=== PATIENT | male | born 1945 | race Caucasian/White ===

== ENCOUNTER → 2020-11-06 | Day surgery (SDC) | payer MEDICARE, OTHER ==
[2020-11-03 08:21] LABS: BASOPHILS % 0.2 % (0.0-1.0); EOSINOPHILS # (AUTO) 0.2 (0.0-0.4); EOSINOPHILS % 3.6 % (0.0-6.0); HEMATOCRIT 44.5 % (38.2-49.6); LYMPHOCYTES # (AUTO) 1.1 (1.0-3.2); LYMPHOCYTES % 22.9 % (18.0-39.1); MEAN CORPUSCULAR HGB CONC 31.5 g/dL (31-35); MEAN CORPUSCULAR VOLUME 92.1 fL (81-99); MONOCYTES # (AUTO) 0.5 (0.2-0.8); MONOCYTES % 10.1 % (4.4-11.3); NEUTROPHILS # (AUTO) 3.1 (2.1-6.9); NEUTROPHILS % 62.8 % (38.7-80.0); PLATELET COUNT 164 x10e3/uL (140-360); RED BLOOD COUNT 4.83 x10e6/uL (4.3-5.7); RED CELL DISTRIBUTION WIDTH 14.2 % (11.7-14.4)
[~2020-11-06] MED LIST: ACETAMINOPHN-T1 EACH PO; ASPIRIN LOW DOS81 MG PO; ASPIRIN81 MG PO; CLARITIN-D 241 EACH PO; ENABLEX7.5 MG PO; FLOMAX0.4 MG PO; FLUNISOLIDE; KEFLEX500 MG PO; LEVOTHYROXINE50 MCG PO; LIPITOR10 MG PO; METFORMIN HCL500 MG PO; MULTIVITAMINE; MYRBETRIQ25 MG PO; PANTOPRAZOLE SO40 MG PO; TEMAZEPAM15 MG PO; TROSPIUM CHLORI20 MG PO; Z.0.DICYCLOMINE HCL2 PO; Z.0.LEVOTHYROXINE25 PO; Z.0.SIMVASTATIN40 MG PO; Z.0.TOVIAZ8 MG PO; Z.2.DOXAZOSIN MESYLA PO; Z.2.METFORMIN HCL500 PO; [UNRECOGNIZED DRUG - OTHER]; [UNRECOGNIZED DRUG - OTHER] PO
[2020-11-06 12:05] VITALS: BP 109/69
== END | disposition home or self-care (01) ==
LOC: OR 08:03
PROVIDERS: ATTEND Internal Medicine Gastroenterology
DX: K44.9 Diaphragmatic hernia without obstruction or gangrene (principal); D12.2 Benign neoplasm of ascending colon; D12.5 Benign neoplasm of sigmoid colon; K29.70 Gastritis, unspecified, without bleeding; K31.7 Polyp of stomach and duodenum; K57.30 Diverticulosis of large intestine without perforation or abscess without bleeding; K64.8 Other hemorrhoids; K63.89 Other specified diseases of intestine; K21.9 Gastro-esophageal reflux disease without esophagitis; Z98.0 Intestinal bypass and anastomosis status; Z98.890 Other specified postprocedural states; K59.00 Constipation, unspecified; R03.0 Elevated blood-pressure reading, without diagnosis of hypertension; E78.00 Pure hypercholesterolemia, unspecified; E11.9 Type 2 diabetes mellitus without complications; E03.9 Hypothyroidism, unspecified; Z88.5 Allergy status to narcotic agent; Z85.46 Personal history of malignant neoplasm of prostate; Z86.010 Personal history of colon polyps; Z01.810 Encounter for preprocedural cardiovascular examination; Z01.812 Encounter for preprocedural laboratory examination; Z20.822 Contact with and (suspected) exposure to COVID-19; Z79.82 Long term (current) use of aspirin; Z79.84 Long term (current) use of oral hypoglycemic drugs
CPT/HCPCS: 36415 ×2; 43239; 45384; 45385; 82948; 85025; 88305; 88312; 93005; U0002

== ENCOUNTER → 2024-07-27 | Day surgery (SDC) | payer MEDICARE, OTHER ==
[2024-07-20 15:55] LABS: BASOPHILS % 0.2 % (0.0-1.0); EOSINOPHILS # (AUTO) 0.1 (0.0-0.4); EOSINOPHILS % 1.3 % (0.0-6.0); HEMATOCRIT 42.4 % (38.2-49.6); HEMOGLOBIN 13.6 g/dL (14.0-18.0); LYMPHOCYTES # (AUTO) 1.4 (1.0-3.2); LYMPHOCYTES % 23.2 % (18.0-39.1); MEAN CORPUSCULAR HEMOGLOBIN 28.8 pg (28-32); MEAN CORPUSCULAR HGB CONC 32.1 g/dL (31-35); MEAN CORPUSCULAR VOLUME 89.8 fL (81-99); MONOCYTES # (AUTO) 0.7 (0.2-0.8); MONOCYTES % 12.4 % (4.4-11.3); NEUTROPHILS # (AUTO) 3.7 (2.1-6.9); NEUTROPHILS % 62.7 % (38.7-80.0); PLATELET COUNT 184 x10e3/uL (140-360); RED BLOOD COUNT 4.72 x10e6/uL (4.3-5.7); RED CELL DISTRIBUTION WIDTH 15.2 % (11.7-14.4); WHITE BLOOD COUNT 5.96 x10e3/uL (4.8-10.8)
[2024-07-20 16:24] LABS: ANION GAP 14.2 mmol/L (8-16); CALCIUM 8.4 mg/dL (8.4-10.2); CREATININE, SERUM 1.26 mg/dL (0.72-1.25); POTASSIUM 4.2 mmol/L (3.5-5.1)
[~2024-07-27] MED LIST changes: +CETIRIZINE HCL10 MG PO; +CIALIS10 MG PO; +DEXAMETHASONE SOD PHOS INJ 4 MG/ML SDV ONE; +FENTANYL CITRATE/PF 100MCG/2 ML INJ ONE; +JANUVIA50 MG PO; +LIDOCAINE HCL 2% LOCAL INJ 5 ML SDV VIAL INJ ONE; +LINZESS145 MCG PO; +MONTELUKAST SOD10 MG PO; +MULTI-VITAMIN1 EACH PO; +ONDANSETRON HCL INJ 2MG/ML 2ML 2 MG/ML VIAL ONE; +PROPOFOL IV EMULSION 10 MG/ML 20 ML VIAL ONE; +SEVOFLURANE INHAL SOLN 250 ML PEN BTL ONE; +VESICARE5 MG PO; +VITAMIN D350 MCG PO; +[UNRECOGNIZED DRUG - OTHER] PO
[2024-07-27] MEDS: LACTATED RINGER'S 1,000 ML ONE (06:15)
[2024-07-27 09:00] VITALS: BP 131/73; PULSE 60; RESP 18; O2SAT 100
== END | disposition home or self-care (01) ==
LOC: OR 05:32
PROVIDERS: ATTEND Specialist
DX: M71.22 Synovial cyst of popliteal space [Baker], left knee (principal); E03.9 Hypothyroidism, unspecified; E11.43 Type 2 diabetes mellitus with diabetic autonomic (poly)neuropathy; K31.84 Gastroparesis; Z79.84 Long term (current) use of oral hypoglycemic drugs; K21.9 Gastro-esophageal reflux disease without esophagitis; E78.5 Hyperlipidemia, unspecified; R00.1 Bradycardia, unspecified; Z01.810 Encounter for preprocedural cardiovascular examination; Z01.812 Encounter for preprocedural laboratory examination; Z01.818 Encounter for other preprocedural examination; Z79.899 Other long term (current) drug therapy; Z79.82 Long term (current) use of aspirin
CPT/HCPCS: 27345; 36415 ×2; 71046; 80048; 82948; 85025; 88305; 88342; 93005; J0690; J1100; J2003; J2405; J2704; J3010; J7121; 88304